=== PATIENT | male | born 1950 | race Caucasian/White ===

== ENCOUNTER 2016-12-14 18:24 | Emergency (ER) | payer OTHER ==
[~2016-12-14] VITALS: Ht 172.7 cm; Wt 80.6 kg
[~2016-12-14 18:24] MED LIST: ASPIRIN81 M2 PO; CO Q-10 RED YE1 EACH PO; FISH OIL 1,0001 EAC7 PO; GLUCOSAMINE &1 EAC1 PO; LISINOPRIL10 MG PO; MULTIPLE VITAM1 EACH PO; OXAYDO5 MG PO; PRAVASTATIN SOD40 MG PO; SAW PALMETTO450 MG PO; VITAMIN E400 UNIT PO
[2016-12-14 19:08] LABS: HEMATOCRIT 50.9 % (38.0-50.0); MCH 30.2 PG (29.0-34.0); MCHC 33.8 G/DL (30.0-36.0); MCV 89.3 FL (86-99); MEAN PLAT.VOLUME 9.8 uM^3 (9.0-12.4); PLATELET COUNT 221 K/uL (156-360); RBC DIS.WIDTH-CV 12.9 % (11.8-14.6); RBC DIS.WIDTH-SD 42.4 % (39-53); WHITE BLOOD COUNT 5.6 K/uL (4.1-10.2)
[2016-12-14 19:20] LABS: CHLORIDE 102 mEq/L (99-109); POTASSIUM 4.1 mEq/L (3.7-5.4); SODIUM 136 mEq/L (136-147)
[2016-12-14 19:23] LABS: GLUCOSE 153 mg/dL (70-99)
[2016-12-14 19:24] LABS: ANION GAP 10 MEQ/L (2-14)
[2016-12-14 19:25] LABS: TOTAL BILIRUBIN 0.7 mg/dL (0.0-1.0)
[2016-12-14 19:26] LABS: ALKALINE PHOSPHATASE 68 IU/L (3-129); GFR ESTIMATE (CALCULATED) > 59 mL/min/
[2016-12-14 19:27] LABS: UREA NITROGEN (BUN) 13 mg/dL (9-23)
[2016-12-14] MEDS ORDERED: AUGMENTIN875 MG PO (20:25)
[2016-12-14] MEDS ORDERED: VENTOLIN HFA18 GM IH (20:26)
[2016-12-14 21:03] VITALS: BP 103/64
== END 2016-12-14 21:12 | disposition home or self-care (01) ==
LOC: EME 18:24
PROVIDERS: Nurse Practitioner Family
DX: J06.9 Acute upper respiratory infection, unspecified (principal); T36.96XA Underdosing of unspecified systemic antibiotic, initial encounter; T48.6X6A Underdosing of antiasthmatics, initial encounter; Z91.14 Patient's other noncompliance with medication regimen; Z87.891 Personal history of nicotine dependence; Z96.652 Presence of left artificial knee joint
CPT/HCPCS: 71020; 80053; 85027; 94640; 99281; 99283; J1885; J2405; J7030

== ENCOUNTER 2017-03-30 16:23 | Emergency (ER) | payer OTHER ==
[~2017-03-30] VITALS: Ht 172.7 cm; Wt 76.5 kg
[~2017-03-30 16:23] MED LIST changes: +AUGMENTIN875 MG PO; +VENTOLIN HFA18 GM IH
[2017-03-30] MEDS ORDERED: OXYCODONE HCL10 MG PO (17:48)
[2017-03-30 18:03] VITALS: BP 136/78
== END 2017-03-30 18:06 | disposition home or self-care (01) ==
LOC: EME 16:23
DX: S72.102A Unspecified trochanteric fracture of left femur, initial encounter for closed fracture (principal); W01.0XXA Fall on same level from slipping, tripping and stumbling without subsequent striking against object, initial encounter; Y93.E2 Activity, laundry; Y92.008 Other place in unspecified non-institutional (private) residence as the place of occurrence of the external cause; Y99.8 Other external cause status; I10 Essential (primary) hypertension; Z89.612 Acquired absence of left leg above knee
CPT/HCPCS: 73502; 99281; 99283

== ENCOUNTER 2017-10-20 10:31 | Emergency (ER) | payer OTHER ==
[~2017-10-20] VITALS: Ht 172.7 cm; Wt 81.9 kg
[~2017-10-20 10:31] MED LIST changes: +OXYCODONE HCL10 MG PO
[2017-10-20 12:36] VITALS: BP 154/88
[2017-10-20 13:16] LABS: BASOPHIL (%) 0.3 % (0-1); EOSINOPHIL (%) 0.9 % (0-5); EOSINOPHIL COUNT 0.1 K/uL (0-0.3); HEMATOCRIT 46.8 % (38.0-50.0); HEMOGLOBIN 16.2 G/DL (12.5-16.6); IMMATURE GRANULOCYTE (%) 0.4 % (0.0-0.7); LYMPHOCYTE (%) 18.5 % (15-42); MCH 30.7 PG (29.0-34.0); MCHC 34.6 G/DL (30.0-36.0); MCV 88.8 FL (86-99); MONOCYTE (%) 10.8 % (3-12); MONOCYTE COUNT 1.2 K/uL (0-0.8); NEUTROPHIL (%) 69.1 % (45-76); NEUTROPHIL COUNT 7.5 K/uL (1.8-6.4); PLATELET COUNT 315 K/uL (156-360); RBC DIS.WIDTH-CV 13.2 % (11.8-14.6); RBC DIS.WIDTH-SD 42.7 % (39-53); RED BLOOD COUNT 5.27 M/uL (4.00-5.50); WHITE BLOOD COUNT 10.9 K/uL (4.1-10.2)
[2017-10-20 13:24] LABS: CHLORIDE 108 mEq/L (99-109); SODIUM 141 mEq/L (136-147)
[2017-10-20 13:26] LABS: GLUCOSE 84 mg/dL (70-99)
[2017-10-20 13:30] LABS: CREATININE 0.9 mg/dL (0.6-1.3); GFR ESTIMATE (CALCULATED) > 59 mL/min/ (58.99-99999)
[2017-10-20 13:31] LABS: UREA NITROGEN (BUN) 12 mg/dL (9-23)
[2017-10-20 13:40] LABS: TROP-I INTERPRETATION NEGATIVE; TROPONIN-I < 0.01 ng/mL (0.0-0.30)
[2017-10-20] MEDS ORDERED: DELTASONE20 M1 PO (13:57)
[2017-10-20] MEDS ORDERED: PEPCID20 MG PO (13:57)
== END 2017-10-20 14:26 | disposition home or self-care (01) ==
LOC: EME 10:31
PROVIDERS: Physician Assistant
DX: L50.9 Urticaria, unspecified (principal); R07.9 Chest pain, unspecified; L25.9 Unspecified contact dermatitis, unspecified cause; I10 Essential (primary) hypertension; Z87.442 Personal history of urinary calculi; Z89.612 Acquired absence of left leg above knee; Z79.82 Long term (current) use of aspirin; Z88.8 Allergy status to other drugs, medicaments and biological substances; Z79.891 Long term (current) use of opiate analgesic
CPT/HCPCS: 80048; 84484; 85025; 93005; 99281; 99285